=== PATIENT | male | born 1930 | race Caucasian/White ===

== ENCOUNTER 2017-01-03 12:44 | Observation (INO) | payer MEDICARE, OTHER ==
[~2017-01-03 12:44] MED LIST: Iopamidol 370 76% 100 ML VIAL ONE
[2017-01-03 13:39] LABS: Hematocrit 44.8 % (42.0-52.0); Mean Platelet Volume 9.9 fL (7.4-10.4); Red Blood Cell (RBC) Count 4.14 mill/uL (4.70-6.10); White Blood Cell (WBC) Count 8.4 thou/uL (4.8-10.8)
[2017-01-03 13:57] LABS: ALT (SGPT) 11 U/L (8-55); AST (SGOT) 28 U/L (5-34); Alkaline Phosphatase 106 U/L (40-150); Anion Gap 18 mmol/L (10-20); BUN (Urea Nitrogen) 25 mg/dL (8.4-25.7); Bilirubin, Total 0.8 mg/dL (0.2-1.2); CK (CPK) 58 U/L (30-200); Calc. Creatinine Clearance 0 mL/min (70-130); Carbon Dioxide 22 mmol/L (23-31); Chloride 99 mmol/L (98-107); Estimated GFR-MDRD 51; Globulin 4.7 g/dL (2.4-3.5); Protein, Total 8.9 g/dL (5.8-8.1)
[2017-01-03 13:58] LABS: Band 1 % (5-11); Macrocytosis SLIGHT = 6-15 cells (100X) (0-5/hpf); Neutrophil 56 % (42-75); Reactive Lymphocytes 8 % (0-10)
[2017-01-03 13:58] LABS: Bilirubin Negative (Negative); Blood, Urine Negative (Negative); Glucose, Urine (Dipstick) Negative (Negative); Ketone, Urine Negative (Negative); Nitrite Negative (Negative); Protein, Urine (Dipstick) 30 mg/dL (Neg-Trace)
[2017-01-03 13:59] LABS: Bacteria/HPF None Seen HPF (None Seen); Hyaline Casts/LPF 0-3 HYALINE CAST LPF (0-3 Hyaline); RBC/HPF 0-3 HPF (0-3); Squamous Epithelial None Seen HPF (0-3); WBC/HPF 0-3 HPF (0-3)
[2017-01-03 14:06] LABS: Troponin I Less than 0.010 ng/mL (< 0.028)
--- NOTE | 2017-01-03 14:41 | RAD ---
TWO VIEWS CHEST: HISTORY: Altered mental status. FINDINGS: PA and lateral views of the chest were obtained. Ectasia of the aorta is seen. Mild pulmonary vasc ular congestion is seen. Some calcifications seen in the left chest soft tissue lateral to the left ribs inferiorly. Anterior bridging osteophytes seen in the lower thoracic spine. IMPRESSION: 1. Calcification and ectasia of the aorta. 2. Left lateral chest wall calcifications. POS: [facility]
--- NOTE | 2017-01-03 15:35 | CT ---
CT BRAIN WITHOUT CONTRAST: HISTORY: Fall. Trauma. COMPARISON: CT brain from 02/17/2009. FINDINGS: There is marked progression of chronic microangiopathic changes. There is progressive moderate atro phy and moderate dilatation of extraaxial CSF spaces and ventricles. No acute hemorrhage. No midline shift or mass effect. There is a new right basal ganglia infarct at the posterior limb internal capsule. The calvarium is intact. The paranasal sinuses and mastoids are clear. IMPRESSION: 1. No acute intracranial hemorrhage. 2. Marked progression of microangiopathic changes with atrophy since the 2009 examination. Multi-i nfarct dementia is a possibility. If there is concern for an acute infarction, MRI is recommended. POS: [facility]
--- NOTE | 2017-01-03 15:45 | CT ---
CONTRAST ENHANCED CTA AORTA: 01/03/17 HISTORY: Abdominal pain. Contrast enhanced CTA of the thoracic and abdominal aorta is obtained after administration of IV con trast. 2D and 3D reconstruction images used to evaluate the chest and the abdomen. No evidence of aortic dissection or significant aneurysm seen. Ascending aortic diameter measures ap proximately 3.9 cm. Extensive coronary artery calcifications seen. ectasia of the aorta is noted. Th e right kidney is absent. The left kidney is unremarkable. There is moderate proximal left renal art haley stenosis, approximately 50-60%. Some atherosclerotic plaque seen in the origin of the celiac art haley with poststenotic dilatation. Mild but not significant evidence of superior mesenteric artery st enosis seen. 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 Multilevel lower thoracic and lumbar degenerative changes seen. There is fracture involving a bridge d osteophyte at the T10-11 level. Could this be the cause of the patient's pain? Inferolateral left chest wall soft tissue calcification is also seen. IMPRESSION: No evidence of abdominal aortic aneurysm or dissection. POS: [facility]
[2017-01-03] MEDS ORDERED: Morphine Sulfate 2 MG/ML SYRINGE SLOW IVP PRN (17:29)
[2017-01-03] MEDS ORDERED: HYDROcodone/Acetaminophen 5/325 mg Tablet PO PRN (17:29)
[2017-01-03] MEDS ORDERED: Acetaminophen 325 MG TAB PO PRN (17:29)
[2017-01-03] MEDS ORDERED: Ondansetron HCl/PF 4 MG/2 ML Vial IVP PRN (17:29)
[2017-01-03] MEDS ORDERED: HYDROcodone/Acetaminophen 10/325 mg Tablet PO PRN (17:29)
[2017-01-03 18:04] VITALS: BMI 20.2
[2017-01-03] MEDS: Sodium Chloride 0.9% 1,000 ML IV SCH (18:38)
--- NOTE | 2017-01-03 18:44 | HP ---
PRIMARY CARE PHYSICIAN: Janet Stark M.D. CHIEF COMPLAINT: Abdominal pain, recent fall. HISTORY OF PRESENT ILLNESS: Mr. Kang is a pleasant 86-year-old white male with history of a congen ital single kidney, hypertension, hyperlipidemia, prior stroke and a past aortic aneurysm status pos t stenting. The patient was in normal state of health until 12/19/2016. He was out in the garage and smoking hi s daily cigar and had the garage door partially closed. As he was walking outside, he struck his he ad on the garage door and fell, striking his head again on the concrete. He did not seek medical ca re at that point and did well for the next 4-5 days, but on 12/24/2016 began to get weaker and off b alance. He has been getting worse over the last 8 or 9 days. ER note mentions no bowel movement in 10 days; however, the patient said he had a bowel movement 1-2 days ago. He has had abdominal pain for the last 4 or 5 days. He describes is as the intermittent and crampy. It rates a 9-10/10 when it strikes. No known exacerbating or alleviating factors. He has had no blood in the stool, he is passing gas regularly, no nausea or vomiting, no difficulty breathing, cough or sputum production. No hematuria or dysuria. He came to the emergency department for evaluation. CT scan of the head was unremarkable, labs were largely unremarkable, vitals were largely normal except for increase in his pulse to 113 at one point. ER notes mentioned afib; however, he does appear to have P waves, it does appeared to be irregular. He has no other current complaints. PAST MEDICAL HISTORY: 1. Congenital single kidney. 2. Hypertension. 3. Hyperlipidemia. 4. History of cerebrovascular disease with a stroke in the past, in family, seizure or mini strokes . 5. Aortic dilation or aneurysm status post stenting about 10 years ago. PAST SURGICAL HISTORY: Include; 1. Right ankle repair about 10-12 years ago. 2. Appendectomy many, many years ago. 3. Aortic stent placement about 10 years ago. MEDICATIONS: List was given to the ER nurse, he is entered in the ER chart, but I am unable to look them up at this time. The list is no longer with the patient. ALLERGIES: NKDA. FAMILY HISTORY: Negative for clotting or bleeding disorders, no immune dysfunction. SOCIAL HISTORY: Significant for daily cigar for many years until 12/19/2016, he had been unable get to the garage since then. No alcohol use. He is . His accompanies him. REVIEW OF SYSTEMS: A 10-point review of systems was performed, negative for all other systems excep t as stated as per HPI. PHYSICAL EXAMINATION: VITAL SIGNS: Temperature 97.4, pulse 74, blood pressure 96/72, respiratory rate 18, satting 99% on room air. GENERAL: He is awake. He is alert. He is oriented x3. He is a well-developed, well-nourished, [place] male, who appears to be in zero distress. HEENT: Normocephalic, atraumatic. Pupils are equal, round and reactive to light bilaterally, mucou s membranes are moist without visible lesions or thrush. NECK: Supple, without lymphadenopathy, no JVD, no thyromegaly. He has normal carotid upstrokes and there were no bruits. LUNGS: Clear. No wheezes, rales or rhonchi. No prolonged expiratory phase, symmetric chest moveme nt and good air movement. CARDIOVASCULAR: Normal S1 and S2. He is irregularly irregular. There are no audible murmurs. ABDOMEN: Soft and is diffusely tender to mild palpation. There is no rebound or rigidity. There i s no guarding. There are hypoactive bowel sounds present in all 4 quadrants. EXTREMITIES: Show no cyanosis, no clubbing, no edema. SKIN: Warm, moist, and well perfused without rashes or lesions. NEUROLOGIC: Cranial nerves II-XII are grossly intact. He has 5/5 strength. Reflexes are intact. I did not get him up to walk him. MUSCULOSKELETAL: Normal to inspection. He has no inflamed joints and no palpable joint effusions. LABORATORY DATA: A comprehensive metabolic profile is normal. Creatinine is 1.32, which is slightl y above his baseline. CBC is normal with a white count of 8.4, platelets of 400,000 and hemoglobin of 14.7. Lipase was 24. Troponin I was negative. CK-MB was normal and urinalysis was clear. CT scan of the brain showed increased microangiopathic changes since 2008, but age appropriate. CT dissection protocol showed no abdominal aortic aneurysm, no evidence of dissection, ascending aortic aneurysm, maximum diameter is 3.9 cm. ASSESSMENT AND PLAN: 1. Abdominal pain: Etiology unclear. Labs are normal. We will get a CT scan of the abdomen with contrast to better evaluate. 2. In the meantime, we will start him on MiraLax daily, recheck labs in the morning. We will monit or his intake and output. 3. Ataxia: The patient has had decreased p.o. intake over the last several days. We will get orth ostatics once he gets to the floor. We will start him on IV fluids at 100 mL per hour. We will get carotid ultrasound and MRI/MRA of the brain and follow up on the results. 4. Chronic kidney disease, stage 3: Creatinine 1.32 in an 86-year-old corresponding to appropriate decrease in GFR. This appears to be around his baseline. 5. Hypertension, essential: We will follow up on his medications once I get a list and we will hol d those right now until we get his orthostatics back. 6. Hyperlipidemia: Hold his antihyperlipidemic agent. 7. Anorexia. I suspect he is maybe dehydrated. We will follow up on the results of his orthostati cs.
[2017-01-03] MEDS ORDERED: Polyethylene Glycol 3350 17 GM Packet PO SCH (20:15)
[2017-01-03] MEDS: Pravastatin Sodium 40 MG TAB PO SCH (21:11)
[2017-01-03] MEDS: Famotidine/PF 20 mg/2ml Vial SLOW IVP SCH (21:24)
--- NOTE | 2017-01-03 23:02 | CT ---
CT ABDOMEN AND PELVIS WITH CONTRAST 01/03/17 COMPARISON: CTA of the chest and abdomen from 01/03/17. HISTORY: Intractable abdominal pain. Prior appendectomy. TECHNIQUE: Multiple contiguous axial images were obtained in a CT of the abdomen and pelvis with contrast. PO c ontrast was administered. Coronal reformats were performed. FINDINGS: The right kidney is not seen and may be surgically or congenitally absent. Contrast is seen in the l eft renal collecting system from recent contrast examination. The urinary bladder shows trabeculatio n along the posterior wall and there is mild enlargement of the left distal ureter. No calyceal dila tation seen in the left kidney. The liver, gallbladder, adrenal glands, and spleen are unremarkable. There is a 1.7 cm cyst adjacent to the right pancreatic head. No pancreatic ductal dilatation is seen. There is scattered diverticula throughout the colon. No free air, free fluid or stranding changes ar e seen in the abdomen or pelvis. A large amount of stool is seen in the right colon. The small bowel is normal in caliber. Contrast passes to the level of the right colon. Atherosclerotic calcifications are seen in the aorta. No abdominal or pelvic lymphadenopathy are see n. Degenerative changes are seen in the spine. The abdominal wall soft tissues and visualized inferior thorax are unremarkable. IMPRESSION: 1. Absence of the right kidney. 2. Diverticulosis. 3. No evidence of acute intra-abdominal/pelvic abnormality. 4. Hypodense structure adjacent to the pancreatic head could represent a small pseudocyst. POS: [facility]
[2017-01-04 05:32] LABS: #Basophils 0.1 thou/uL (0.0-0.2); #Eosinphils 0.2 thou/uL (0.0-0.7); #Lymphocytes 1.1 thou/uL (1.20-3.40); #Monocytes 1.3 thou/uL (0.11-0.59); %Basophils 0.6 % (0.0-1.0); %Eosinophils 1.7 % (0.0-10.0); %Lymphocytes 11.1 % (21.0-51.0); %Monocytes 13.7 % (0.0-10.0); Hematocrit 40.5 % (42.0-52.0); Mean Platelet Volume 9.8 fL (7.4-10.4); Red Blood Cell (RBC) Count 3.77 mill/uL (4.70-6.10); White Blood Cell (WBC) Count 9.6 thou/uL (4.8-10.8)
[2017-01-04 05:45] LABS: Anion Gap 16 mmol/L (10-20); BUN (Urea Nitrogen) 21 mg/dL (8.4-25.7); Calc. Creatinine Clearance 43 mL/min (70-130); Calcium 9.2 mg/dL (7.8-10.44); Carbon Dioxide 19 mmol/L (23-31); Chloride 98 mmol/L (98-107); Estimated GFR-MDRD 61
--- NOTE | 2017-01-04 08:23 | ULT ---
BILATERAL CAROTID DUPLEX ULTRASOUND: HISTORY: Ataxia, CVA. TECHNIQUE: Rios scale ultrasound with color flow and spectral Doppler imaging of the extracranial carotid arter y systems is performed bilaterally. FINDINGS: There is plaque formation on either side. The peak systolic velocity in the right ICA measures 40 cm/s with an end-diastolic velocity of 12 cm /s and a systolic ratio of 1.04. The peak systolic velocity in the left ICA measures 42 cm/s with an end-diastolic velocity of 18 cm/ s and a systolic ratio of 0.97. Flow in both vertebral arteries remains antegrade. IMPRESSION: No evidence of hemodynamically significant stenosis. POS: [facility]
[2017-01-04] MEDS: Sodium Chloride 0.9% 1,000 ML IV SCH ×2 (08:40→13:47)
[2017-01-04] MEDS ORDERED: Polyethylene Glycol 3350 17 GM Packet PO SCH (09:00)
[2017-01-04] MEDS: Aspirin 325 MG TAB PO SCH (09:17)
[2017-01-04] MEDS: Famotidine/PF 20 mg/2ml Vial SLOW IVP SCH ×2 (09:17→20:20)
[2017-01-04] MEDS: Polyethylene Glycol 3350 17 GM Packet PO SCH (09:17)
--- NOTE | 2017-01-04 13:38 | PDOC.PN ---
- Subjective Encounter Start Date: 01/04/17 Encounter Start Time: 13:30 Expresses no complaint. Alert, confused. - Objective Resuscitation Status: Resuscitation Status FULL:Full Resuscitation Vital Signs & Weight: Vital Signs (12 hours) Temp Pulse Pulse Pulse Pulse Pulse Resp 01/04/17 12:00 97.4 F L 85 18 01/04/17 09:00 95 70 01/04/17 08:40 95 01/04/17 08:10 76 58 L 82 77 01/04/17 08:00 97.4 F L 102 H 20 BP BP BP BP BP BP 01/04/17 12:00 103/67 01/04/17 09:00 136/99 H 134/94 H 01/04/17 08:40 134/94 H 136/99 H 01/04/17 08:10 186/99 H 148/105 H 135/88 175/103 H 01/04/17 08:00 Weight Weight 145 lb 5 oz I&O: 01/03/17 01/04/17 01/05/17 06:59 06:59 06:59 Intake Total 1549 240 Output Total 1100 Balance 449 240 Result Diagrams: 01/04/17 04:53 01/04/17 04:53 Phys Exam - Physical Examination HEENT: sclera anicteric Neck: no JVD Respiratory: clear to auscultation bilateral Cardiovascular: RRR Gastrointestinal: soft, non-tender, no distention Musculoskeletal: no edema Neurological: moves all 4 limbs Psychiatric: normal affect Dx/Plan (1) Confusion Code(s): R41.0 - DISORIENTATION, UNSPECIFIED Status: Acute Plan: So far work up negative.. Acute Delirium. Has not received narcotics. Check b12, folate, TFT's, ESR. (2) HTN (hypertension) Code(s): I10 - ESSENTIAL (PRIMARY) HYPERTENSION Status: Acute Comment: BP satisfactory. (3) History of CVA (cerebrovascular accident) Code(s): Z86.73 - PRSNL HX OF TIA (TIA), AND CEREB INFRC W/O RESID DEFICITS Status: Acute (4) CKD (chronic kidney disease) Code(s): N18.9 - CHRONIC KIDNEY DISEASE, UNSPECIFIED Status: Acute Comment: resolving.. - Plan -: F/u MRI, lab results. * .
--- NOTE | 2017-01-04 14:27 | MRI ---
EXAM: BRAIN MRI WITHOUT CONTRAST: HISTORY: Confusion. Fall. Trauma. Ataxia. Evaluate for CVA. COMPARISON: None. TECHNIQUE: There is limited evaluation due to motion degradation on multiple sequences. Calvarium has a normal T1 marrow signal intensity. Midline brain parenchymal structures are unremar kable. There is age-appropriate atrophy. Axial T2 weighted images are suboptimal due to motion degradation. Grossly, central arterial flow v oids appear to be maintained. There is no restricted diffusion. No obvious parenchymal masses or obvious midline shift. Cortical whitten-white matter differentiation cannot be assessed. IMPRESSION: 1. Limited evaluation due to motion degradation. 2. No restricted diffusion. No acute infarct. POS: [facility]
--- NOTE | 2017-01-04 14:33 | MRI ---
EXAM: MR ANGIOGRAM OF THE [place]: HISTORY: Ataxia. Evaluate for CVA. Altered mental status. COMPARISON: None. TECHNIQUE: Axial 3D [id number] imaging of the [place] is performed. Maximum intensity projection images are submitted for interpretation. FINDINGS: Limited evaluation due to motion degradation. There is grossly symmetric flow-related signal in bot h distal cervical and intracranial internal carotid arteries. ANTERIOR CIRCULATION: There is grossly symmetric flow-related signal in the A1 and M1 segments. Grossly symmetric flow-re lated signal in the proximal MCA branches and proximal A2 segments. POSTERIOR CIRCULATION: Codominant vertebral arteries. Suboptimal evaluation of both PICA artery origins. Incomplete evalu ation of the proximal basilar artery. Mid to distal basilar artery has appropriate flow-related sig nal. Left and right P1 segments have symmetric flow-related signal. IMPRESSION: Limited evaluation due to motion degradation. Grossly, no abnormality. POS: [facility]
--- NOTE | 2017-01-04 18:08 | PDOC.EVN ---
Event Note - Event Note Event Note: Nuerology consulted in view of confusion, new onset...
[2017-01-04] MEDS: Pravastatin Sodium 40 MG TAB PO SCH (20:20)
[2017-01-05 08:03] VITALS: TEMP 97.3
[2017-01-05 08:47] VITALS: BP 145/60
[2017-01-05] MEDS: Aspirin 325 MG TAB PO SCH (09:06)
[2017-01-05] MEDS: Polyethylene Glycol 3350 17 GM Packet PO SCH (09:06)
[2017-01-05] MEDS: Famotidine/PF 20 mg/2ml Vial SLOW IVP SCH (09:07)
--- NOTE | 2017-01-05 12:19 | DIS ---
DATE OF ADMISSION: 01/03/2017 DATE OF DISCHARGE: 01/04/2017 TRANSFER OF CARE PRIMARY CARE DOCTOR: Janet Stark M.D. DISCHARGE DISPOSITION: Home. FINAL DIAGNOSES: Early dementia with confusion, chronic kidney disease stage 3, hypertension, and d yslipidemia. DISCHARGE MEDICATIONS: New, Aricept 5 mg a day, aspirin 325 mg a day, clonidine 0.2 mg a day, losar nieves HCT 50/12.5 one half tablet a day, pravastatin 40 mg a day, lactulose 10 mg p.r.n., polyethylene glycol 17 mg p.o. daily. ALLERGIES: No known drug allergies. PENDING AT THE TIME OF DISCHARGE: Nothing. CODE STATUS: FULL. HOSPITAL COURSE: The patient admitted to [facility] with some abdominal pain a nd recent fall. He has had some progressive confusion in the hospital which in discussion with the turns out to be worse than before, but not new. Brain MRI was unrevealing for acute illness as well as CT scan of the brain. Abdominal pelvis CT revealed absence of right kidney and possible sm all pancreatic pseudocyst. The patient was treated with laxatives, had some enema. Abdominal pain has resolved. PERTINENT LABORATORY DATA: Creatinine 1.32, BUN 25. CBC: White count 8.4, hemoglobin 14.7, and pl atelet count 400,000. In summary, the patient exhibits signs and symptoms of early dementia. I have discussed options for continuing care with the . We have discussed the option of getting Aricept to his regimen to s ee if this is beneficial and a prescription has been given for that. No consultations were obtained . No procedures were obtained. The patient is being discharged to home with his . We discusse d such efforts as [facility] instead to assist her, the possible necessity of placement if he continues to get worse. She has been advised to have him seen by Dr. Stark this week for continui ng evaluation of possible dementia, etc.
--- NOTE | 2017-01-11 14:51 | EKG ---
Test Reason : WEAKNESS Blood Pressure : / mmHG Vent. Rate : 096 BPM Atrial Rate : 092 BPM P-R Int : 096 ms QRS Dur : 120 ms QT Int : 396 ms P-R-T Axes : 000 085 009 degrees QTc Int : 500 ms Poor data quality, interpretation may be adversely affected Sinus rhythm with short SD with Premature supraventricular complexes Right bundle branch block Abnormal ECG Confirmed by TAMIKO KEBEDE D.O. ([id number]), assignment editor ASHLI DAWKINS ([id number]) on 01/11/2017 2:51:05 PM Referred By: PEDRO Confirmed By:TAMIKO KEBEDE D.O.
== END 2017-01-05 10:29 | disposition home or self-care (01) ==
LOC: ERS 12:44 → 2SE 15:45
PROVIDERS: ADMIT Family Medicine; ATTEND Family Medicine
DX: R10.9 Unspecified abdominal pain (principal); F03.90 Unspecified dementia, unspecified severity, without behavioral disturbance, psychotic disturbance, mood disturbance, and anxiety; I12.9 Hypertensive chronic kidney disease with stage 1 through stage 4 chronic kidney disease, or unspecified chronic kidney disease; N18.3 Chronic kidney disease, stage 3 (moderate); E78.5 Hyperlipidemia, unspecified; F17.210 Nicotine dependence, cigarettes, uncomplicated; Q60.0 Renal agenesis, unilateral; Z79.82 Long term (current) use of aspirin; Z79.899 Other long term (current) drug therapy; Z90.49 Acquired absence of other specified parts of digestive tract; Z95.5 Presence of coronary angioplasty implant and graft; Z98.890 Other specified postprocedural states; Z86.73 Personal history of transient ischemic attack (TIA), and cerebral infarction without residual deficits
CPT/HCPCS: 70450; 70544; 70551; 71020; 71275; 74177; 80048; 80053; 82550; 82553; 82607; 82746; 83690; 83880; 84439; 84443; 84484; 85025 ×2; 85652; 93005; 93880; 96361 ×2; 96374; 96376 ×2; 97139 ×2; 97530; 99285; G0378; G8978; G8979; G8987; G8988; 36415; 81003; 81015; A4216; G8996-GN-CM; G8997-GN-CJ; S0028

== ENCOUNTER 2017-07-22 20:39 | Emergency (ER) | payer MEDICARE, OTHER ==
[2017-07-22] MEDS ORDERED: Adacel (T-DAP) 0.5 ML VIAL ONE (21:34)
[2017-07-22] MEDS ORDERED: Bacitracin Zinc 1 Packet ONE ×2 (22:00→22:57)
[2017-07-22] MEDS ORDERED: Lidocaine 1% w/Epinephrine 1:100K 20 ML VIAL ONE (22:18)
--- NOTE | 2017-07-22 22:34 | CT ---
NONCONTRAST HEAD CT: HISTORY: The patient fell at home. Post traumatic pain. COMPARISON: 01/03/2017 TECHNIQUE: A noncontrast head CT is performed from the skull base to the skull vertex. FINDINGS: No parenchymal hemorrhage. No extraaxial hematoma. No midline shift. The basilar cisterns are ayala nt. Age appropriate atrophy. Cortical whitten white matter differentiation is preserved. The ventricles and sulci are patent and symmetric. Chronic small vessel ischemic changes of the white matter are identified. The calvarium is intact. Cavernous carotid atherosclerosis is noted. Chronic changes of the right maxillary sinus. Adequate aeration of the mastoid air cells. IMPRESSION: 1. No intracranial posttraumatic sequelae. 2. Age appropriate atrophy. 3. Chronic small vessel ischemic change of the white matter. POS: [facility]
--- NOTE | 2017-07-22 22:37 | CT ---
CT CERVICAL SPINE WITHOUT CONTRAST: HISTORY: Fall. Pain. COMPARISON: None. TECHNIQUE: CT cervical spine is performed without contrast. Reformatted images are submitted for interpretation . FINDINGS: The visualized soft tissue neck structures are unremarkable. There is atherosclerosis of both caroti d arteries. The visualized lung apices are unremarkable. There are varying degrees of central canal stenosis and foraminal narrowing, on the basis of degenera tive change. Evaluation is limited by technique. There is no craniocervical disassociation. The occipital condyles appear to be intact. There is franco ropriate alignment of the lateral masses of C1 and C2, as well as the intraarticular facets. There a re chronic degenerative changes involving the atlantoaxial articulation. There is extensive osteophyte formation throughout the cervical spine. There is diffuse bone deminer alization. No evidence of malalignment. Cervical spine vertebral body height is maintained. There is no fracture. IMPRESSION: 1. No fracture. 2. Chronic changes, as above. POS: [facility]
== END 2017-07-23 01:20 | disposition home or self-care (01) ==
LOC: ERS 20:39
DX: S61.412A Laceration without foreign body of left hand, initial encounter (principal); F03.90 Unspecified dementia, unspecified severity, without behavioral disturbance, psychotic disturbance, mood disturbance, and anxiety; E78.5 Hyperlipidemia, unspecified; I10 Essential (primary) hypertension; F17.290 Nicotine dependence, other tobacco product, uncomplicated; Z71.6 Tobacco abuse counseling; Z86.73 Personal history of transient ischemic attack (TIA), and cerebral infarction without residual deficits; Z79.82 Long term (current) use of aspirin; Z79.899 Other long term (current) drug therapy; W19.XXXA Unspecified fall, initial encounter; Y92.009 Unspecified place in unspecified non-institutional (private) residence as the place of occurrence of the external cause
CPT/HCPCS: 70450; 72125; 90471; 90715; 99406; J2001

== ENCOUNTER 2019-01-14 09:27 | Outpatient (CLI) | payer MEDICARE, OTHER ==
--- NOTE | 2019-01-14 09:53 | RAD ---
EXAM: Chest 2 views: HISTORY: Cough COMPARISON: 01/03/2017 FINDINGS: Heart size:Within normal limits. Lungs:Approximately 3 cm diameter nodular opacity seen overlying the mid thoracic spine on the latera l view, this in part probably represents underlying disc osteophytosis although an associated lung mass cannot be excluded. Follow-up CT scan is recommended. Right hemidiaphragm elevation posteriorly. Atherosclerotic changes of the aorta. No confluent pneumonia, overt edema, pleural effusion, pneumothorax, or other significant acute proce ss. IMPRESSION: Approximately 3 cm diameter nodular opacity seen on the lateral view overlying the mid thoracic spine . Recommend CT scan for further assessment. Atherosclerosis of the aorta. No acute intrathoracic disease. CODE T
== END 2019-01-14 09:28 | disposition home or self-care (01) ==
LOC: BICRAD 09:27
PROVIDERS: ATTEND Internal Medicine
DX: R05 Cough (principal); R91.8 Other nonspecific abnormal finding of lung field; I70.0 Atherosclerosis of aorta
CPT/HCPCS: 71046

== ENCOUNTER 2019-03-06 15:47 | Inpatient (IN) | payer MEDICARE, OTHER ==
--- NOTE | 2019-03-06 16:39 | CT ---
Exam: Head CT without contrast HISTORY: Altered mental status. Dementia COMPARISON: 07/22/2017 FINDINGS: Hemorrhage: No intraparenchymal hemorrhage or extra-axial hematoma. Brain parenchyma: Cortical whitten-white matter differentiation is preserved. No mass effect or midline shift. Basilar cisterns are patent.White matter hypodensities due to chronic small vessel ischemic change. Ventricular system: Ventricles and sulci are patent and symmetric. Calvarium: Intact. Sinuses and mastoid air cells: Adequate aeration of the paranasal sinuses. Sclerosis of the right max illary sinus likely due to chronic disease. Currently, no significant right maxillary sinus opacification. IMPRESSION: No acute intracranial process.
[2019-03-06 17:21] LABS: ALT (SGPT) 9 U/L (8-55); AST (SGOT) 21 U/L (5-34); Albumin 3.7 g/dL (3.4-4.8); Alkaline Phosphatase 99 U/L (40-110); Anion Gap 12 mmol/L (10-20); BUN (Urea Nitrogen) 16 mg/dL (8.4-25.7); Bilirubin, Total 0.7 mg/dL (0.2-1.2); CK (CPK) 112 U/L (30-200); Calc. Creatinine Clearance 0 mL/min (70-130); Calcium 8.5 mg/dL (7.8-10.44); Carbon Dioxide 23 mmol/L (23-31); Chloride 99 mmol/L (98-107); Estimated GFR-MDRD 60; Globulin 2.9 g/dL (2.4-3.5); Glucose 108 mg/dL (83-110); Potassium 4.2 mmol/L (3.5-5.1); Protein, Total 6.6 g/dL (5.8-8.1); Sodium 130 mmol/L (136-145)
[2019-03-06 17:59] LABS: Hemoglobin 12.5 g/dL (14.0-18.0); Mean Corpuscular HGB CONC 32.3 g/dL (32.0-36.0); Mean Corpuscular Hemoglobin 31.2 pg (27.0-31.0); Mean Corpuscular Volume 96.4 fL (78.0-98.0); Mean Platelet Volume 9.3 fL (7.4-10.4); Platelet Count 380 thou/uL (130-400); RBC Distribution Width 12.2 % (11.5-14.5); Red Blood Cell (RBC) Count 4.03 mill/uL (4.70-6.10); White Blood Cell (WBC) Count 28.6 thou/uL (4.8-10.8)
[2019-03-06 18:18] LABS: Band 11 % (5-11); Eosinophils 1 % (0-10); Lymphocytes 2 % (21-51); MDiff Complete? YES; Monocytes 3 % (0-10); Neutrophil 83 % (42-75); Platelet Morphology Comment Appears Adequate; Polychromasia SLIGHT = 2-3 cells (100X) (0-2/hpf); Schistocytes SLIGHT = 2-5 cells (100X) (0-1/hpf)
[2019-03-06 18:54] LABS: Bilirubin Negative (Negative); Blood, Urine Negative (Negative); Clarity Clear (Clear); Glucose, Urine (Dipstick) Normal (Negative); Leukocyte Negative Leu/uL (Negative); Nitrite Negative (Negative); Protein, Urine (Dipstick) 20 mg/dL (Neg-Trace); Urobilinogen Normal mg/dL (Less than 2)
--- NOTE | 2019-03-06 19:26 | RAD ---
XR Chest 1 View Portable History: Altered mental status Comparison: Radiograph January 14, 2019 Findings: Faint bibasilar airspace opacities. Mild tortuosity of the aorta. No pneumothorax. No effus ion. No acute osseous abnormality. Impression: Faint bibasilar opacities may reflect aspiration or infection.
[2019-03-06] MEDS ORDERED: Piperacillin/Tazobactam 4.5 GM VIAL ONE (21:19)
[2019-03-07] MEDS ORDERED: Acetaminophen 325 MG TAB PO PRN ×2 (00:13→00:53)
[2019-03-07] MEDS ORDERED: Sodium Chloride 0.9% 500 ML IV SCH ×2 (00:15→09:00)
--- NOTE | 2019-03-07 00:37 | HP ---
PRESENTING COMPLAINT: Fall, weakness. HISTORY OF PRESENT ILLNESS: Mr. Jorge Luis Valerio is an 88-year-old male with history of dementia, recurrent falls, status post multiple physical therapy, currently on hospice with home PT, admitted today after sustaining a fall while going to the bathroom. Family reports the patient has fallen backward and hit his head. The patient denies falling. He states he is not sure why he came to the hospital. He denies any chest pain. He denies any dizziness or vertigo feeling. Family reports the patient has been having decreasing p.o. intake. He has also been having recent diarrhea. On arrival in the ED, head CT did not show any acute intracranial bleed. The patient was noted with mild leukocytosis with WBC of 28,000, and been admitted for presumed pneumonia. The patient denies any cough or shortness of breath or sputum. PAST MEDICAL HISTORY: Significant for hypertension, hyperlipidemia, history of CVA in the past, history of aortic dilatation requiring stenting, dementia, and currently on hospice. The patient has history of chronic atrial fibrillation, not on any anticoagulation currently. PAST SURGICAL HISTORY: Includes aortic stent placement, ankle repair, and appendectomy. ALLERGIES: NO KNOWN DRUG ALLERGY. HOME MEDICATIONS: Include; 1. Clonidine 0.2 daily. 2. Pravachol 40 daily. 3. Losartan/hydrochlorothiazide 50/12.5, 0.5 daily. 4. Aricept 5 mg at bedtime. 5. Aspirin 325 daily. 6. Lactulose p.r.n. as well as MiraLAX. FAMILY HISTORY: Noncontributory in this elderly male. REVIEW OF SYSTEMS: Unable to obtain given patient's baseline dementia. PHYSICAL EXAMINATION: CURRENT VITALS: Blood pressure of 125/69, respiratory rate of 20, pulse of 110, temp 99.3, O2 saturation of 92% on room air. GENERAL: Average-built elderly male, lying in bed. HEAD: Atraumatic, normocephalic. No area of abrasion over the scalp. No tenderness elicited. NECK: No JVD. No carotid bruit. RESPIRATORY: Good air entry. No area of crepitation or elicited egophony. CARDIOVASCULAR: S1, S2. Irregular and tachycardic. GI: Abdomen is full, soft. Bowel sounds positive. No reproducible tenderness. EXTREMITIES: No calf tenderness. No pedal edema. NEURO: Patient is alert to person and to place, but not to time. Moving extremities equally. No neurological focal motor deficit. LABORATORY DATA: WBC 28.6, neutrophils 83%, 11% bands, hemoglobin 12.5, platelet 380. Sodium 130, potassium 4.2, lactic acid 2.0, BUN 16, creatinine 1.1. BNP of 110. Albumin 3.7. AST and alkaline phosphatase normal. Urinalysis was negative. Stool workup, C difficile Campylobacter and shiga toxin test pending. Head CT shows no acute intracranial process and chest x-ray shows faint bibasilar opacities, which may reflect aspiration. IMPRESSION: 1. Presumed right base pneumonia. 2. Recurrent falls. 3. History of dementia, progressive. 4. Hyponatremia. 5. Acute gastroenteritis, unclear etiology. PLAN: We will admit patient to inpatient status. We will manage the patient for the following; 1. Recurrent falls, may be due to recent diarrhea as well as progressive dementia-induced weakness. We will consult PT and OT. We will address presumed pneumonia and correct. 2. Leukocytosis/right base pneumonia; we will obtain blood culture x2. We will start patient on empiric antibiotics with Rocephin 2 g daily. We will obtain sputum for culture and sensitivity if feasible. We will monitor O2 saturation closely and start oxygen if needed. 3. AFib; we will monitor. We will start the patient on low-dose metoprolol if persistent elevated heart rate. May need amiodarone or digoxin. 4. Dementia with decreased appetite. We will start Remeron trial. 5. DVT prophylaxis, subcutaneous Lovenox. 6. Advance directives, patient is DNR/DNI. Total time spent evaluation of patient and discussion with family, greater than 60 minutes. Job ID: [id number]
[2019-03-07 00:42] VITALS: BMI 24.8
[2019-03-07] MEDS ORDERED: Guaifenesin DM 100-10/5 ML UDCUP PO PRN (00:53)
[2019-03-07] MEDS ORDERED: Ondansetron PF 4 MG/2 ML Vial IVP PRN ×2 (00:53→08:47)
[2019-03-07] MEDS ORDERED: Lorazepam 2 MG/ML VIAL SLOW IVP PRN (00:53)
[2019-03-07] MEDS ORDERED: Morphine 2 MG/ML SYRINGE SLOW IVP PRN (00:53)
[2019-03-07] MEDS ORDERED: hydrALAZINE 20 MG/ML VIAL SLOW IVP PRN ×2 (00:53→08:47)
[2019-03-07] MEDS ORDERED: Nitroglycerin 0.4 MG TAB (25 Tab Bottle) SL PRN (00:53)
[2019-03-07] MEDS ORDERED: Mirtazapine 15 MG Soltab PO SCH ×2 (01:00→21:00)
[2019-03-07] MEDS ORDERED: cefTRIAXone\\ROCEPHIN 2 GM in Sodium Chloride 0.9% 100 ML IVPB SCH (02:00)
[2019-03-07 04:34] LABS: Anion Gap 18 mmol/L (10-20); BUN (Urea Nitrogen) 16 mg/dL (8.4-25.7); Calc. Creatinine Clearance 53 mL/min (70-130); Carbon Dioxide 18 mmol/L (23-31); Chloride 101 mmol/L (98-107); Estimated GFR-MDRD 64; Glucose 97 mg/dL (83-110); Potassium 3.8 mmol/L (3.5-5.1); Sodium 133 mmol/L (136-145)
[2019-03-07 05:16] LABS: #Eosinphils 0.2 thou/uL (0.0-0.7); #Lymphocytes 1.3 thou/uL (1.20-3.40); #Monocytes 1.3 thou/uL (0.11-0.59); #Neutrophils 9.7 thou/uL (1.40-6.50); %Basophils 0.2 % (0.0-1.0); %Eosinophils 1.4 % (0.0-10.0); %Lymphocytes 10.4 % (21.0-51.0); %Monocytes 10.1 % (0.0-10.0); %Neutrophils 77.9 % (42.0-75.0); Hemoglobin 12.7 g/dL (14.0-18.0); Mean Corpuscular HGB CONC 32.4 g/dL (32.0-36.0); Mean Corpuscular Hemoglobin 30.9 pg (27.0-31.0); Mean Corpuscular Volume 95.2 fL (78.0-98.0); Mean Platelet Volume 9.9 fL (7.4-10.4); Platelet Count 315 thou/uL (130-400); RBC Distribution Width 12.2 % (11.5-14.5); Red Blood Cell (RBC) Count 4.12 mill/uL (4.70-6.10); White Blood Cell (WBC) Count 12.4 thou/uL (4.8-10.8)
[2019-03-07] MEDS ORDERED: Piperacillin/Tazobactam 4.5 GM in Sodium Chloride 0.9% 100 ML IVPB SCH (06:00)
--- NOTE | 2019-03-07 07:50 | PDOC.HHP ---
Hospitalist HPI - History of Present Illness Fall, syncope History of Present Illness: Patient is an 88 year old male with PMH atrial fibrillation, dementia, history of TIA who presented to ED from home for fall last night. History obtained from ([facility], ) and ED chart review as patient is unreliable historian. 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 and patient do not think there was significant trauma during fall. reports pale and diaphoretic after episode. Patient recovered consciousness in a few seconds but was altered afterwards somewhat and remains below baseline mental status. No bowel or bladder incontinence during episode. No history of seizure. Patient has had a TIA 1.5 years ago with no residual. 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 When I talk with patient he is pleasant and conversive, but denies any memory of fall and reports he feels great. In ED, imaging performed which ED physician interpreted as early pneumonia. VS stable, no fevers or hypoxia. CT head without acute findings. Telemetry and EKG reported w/ atrial fibrillation rate controlled 81 bpm. Sound hospitalist called to admit patient, currently vitals stable, not hypoxic, denies all symptoms (see ROS), may be minimizing with goal of going home sooner. Sees Dr Janet Partida as outpatient, patient was on hospice service currently but is probably now revoked on admission to hospital today, was on hospice due to dementia. Hospitalist ROS - Review of Systems Constitutional: denies: fever, chills Eyes: denies: pain, vision change ENT: denies: nose discharge, throat swelling Respiratory: denies: cough, shortness of breath Cardiovascular: denies: chest pain, palpitations Gastrointestinal: denies: nausea, vomiting, abdominal pain Genitourinary: denies: dysuria, frequency Musculoskeletal: denies: neck pain, shoulder pain Skin: denies: rash, lesions Neurological: denies: weakness, numbness Other: baseline dementia - Medication Medications: Active Medications Generic Name Dose Route Start Last Admin Trade Name Freq PRN Reason Stop Dose Admin Sodium Chloride 500 mls @ 25 mls/hr 03/07/19 00:15 03/07/19 01:50 Normal Saline 0.9% IV 03/07/19 08:45 500 mls .Q20H WES Administration Piperacillin Sod/Tazobactam 100 mls @ 200 mls/hr 03/07/19 06:00 03/07/19 06: 34 Sod 4.5 gm/ Sodium Chloride IVPB 03/07/19 08:45 100 mls Q6HR WES Administration Ceftriaxone Sodium 2 gm/ 100 mls @ 200 mls/hr 03/07/19 02:00 03/07/19 01:58 Sodium Chloride IVPB 100 mls 0200 WES Administration Hospitalist History - Past Medical History Other Medical History: CVA born with one kidney HTN dementia - Past Surgical History Other Surgical History: ankle surgery appendectomy spinal surgery - Family History Other Family History: reviewed and noncontributory - Social History Other Social History: denies alcohol, denies drug use, smokes cigars - Exam General Appearance: NAD, awake alert Eye: PERRL, anicteric sclera ENT: normocephalic atraumatic, moist mucosa Neck: supple, no JVD Heart: no murmur, no gallops, no rubs Heart - other findings: irregularly irregular Respiratory: CTAB, no wheezes, no rales, no ronchi Gastrointestinal: soft, non-tender, non-distended, normal bowel sounds Extremities: no cyanosis, no clubbing, no edema Skin: no lesions, no rashes Neurological: cranial nerve grossly intact, normal sensation to touch, no weakness, no focal deficits Musculoskeletal: normal tone, normal strength Psychiatric: normal affect Psychiatric - other findings: dementia, pleasant Hospitalist Results - Labs Result Diagrams: 03/07/19 03:38 03/07/19 03:38 Lab results: WBC 12.4 thou/uL (4.8-10.8) H 03/07/19 03:38 Hgb 12.7 g/dL (14.0-18.0) L 03/07/19 03:38 Hct 39.2 % (42.0-52.0) L 03/07/19 03:38 MCV 95.2 fL (78.0-98.0) 03/07/19 03:38 Plt Count 315 thou/uL (130-400) 03/07/19 03:38 Neutrophils % 77.9 % (42.0-75.0) H 03/07/19 03:38 Band Neuts % (Manual) 11 % (5-11) 03/06/19 17:46 Sodium 133 mmol/L (136-145) L 03/07/19 03:38 Potassium 3.8 mmol/L (3.5-5.1) 03/07/19 03:38 Chloride 101 mmol/L (98-107) 03/07/19 03:38 Carbon Dioxide 18 mmol/L (23-31) L 03/07/19 03:38 BUN 16 mg/dL (8.4-25.7) 03/07/19 03:38 Creatinine 1.09 mg/dL (0.7-1.3) 03/07/19 03:38 Glucose 97 mg/dL (83-110) 03/07/19 03:38 Lactic Acid 2.0 mmol/L (0.5-2.2) 03/06/19 17:46 Calcium 9.0 mg/dL (7.8-10.44) 03/07/19 03:38 Total Bilirubin 0.7 mg/dL (0.2-1.2) 03/06/19 16:46 AST 21 U/L (5-34) 03/06/19 16:46 ALT 9 U/L (8-55) 03/06/19 16:46 Alkaline Phosphatase 99 U/L (40-110) 03/06/19 16:46 Creatine Kinase 112 U/L (30-200) 03/06/19 16:46 Troponin I Less than 0.010 ng/mL (< 0.028) 03/06/19 16:46 B-Natriuretic Peptide 110.8 pg/mL (0-100) H 03/06/19 16:46 Serum Total Protein 6.6 g/dL (5.8-8.1) 03/06/19 16:46 Albumin 3.7 g/dL (3.4-4.8) 03/06/19 16:46 Urine Ketones Negative mg/dL (Negative) 03/06/19 18:35 Urine Blood Negative (Negative) 03/06/19 18:35 Urine Nitrite Negative (Negative) 03/06/19 18:35 Ur Leukocyte Esterase Negative Elan/uL (Negative) 03/06/19 18:35 Hospitalist H&P A/P - Plan Plan: Patient is an 88 year old male with PMH atrial fibrillation, dementia, history of TIA who presented to ED from home for fall last night, being treated for: # syncope - ddx vasovagal vs cardiac vs medication induced, no BBI or post ictal confusion, occured on ambulating during night which suggests vasovagal as cause, patient not reliable historian - admit to telemetry (in IMCU as overflow I believe, ok to send to telemetry when bed available) - monitor on telemetry, trend troponins, echo ordered - orthostatic vitals ordered, 500cc bolus - treat pneumonia and hyponatremia as below - hold metoprolol, change clonidine to PRN and monitor BP and HR for lows that could have caused fall # hyponatremia - went from 133 to 130 here, trend BMP daily, give IVF bolus, treat pneumonia, rule out heart failure # leukocytosis - likely leukemoid reaction to fall and pneumonia, trend CBC # atrial fibrillation - rate controlled, not on anticoagulation at home as far as I am aware, hold metoprolol and monitor heart rate - monitor on telemetry, follow rate, restart beta ngozi if needed # pneumonia - community aquired, order azithromycin and ceftraixone, follow up urinary legionella and pneumococcal abs and flu screen # history of dementia - continue home dementia medications, fall precautions, patient was on hospice for this before admission Disposition - monitor on telemetry and follow up ordered studies above, PT/OT to screen for rehab needs, if cleared for d/c medically will want to discuss with case management before discharge as will likely want to restart hospice. adjust BP/heart meds on discharge if lows observed.
[2019-03-07] MEDS ORDERED: Loperamide HCl 2 MG CAP PO PRN (08:34)
[2019-03-07] MEDS ORDERED: Bisacodyl 10 MG SUPP PR PRN (08:34)
[2019-03-07] MEDS ORDERED: Bisacodyl 5 MG TAB PO PRN (08:34)
[2019-03-07] MEDS ORDERED: Senokot S 8.6-50 MG TAB PO PRN (08:34)
[2019-03-07] MEDS ORDERED: cloNIDine 0.1 MG TAB PO PRN (08:47)
[2019-03-07] MEDS ORDERED: Promethazine HCl 12.5 MG in Sodium Chloride 0.9% 50 ML IVPB PRN (08:47)
[2019-03-07] MEDS ORDERED: Famotidine 20 MG TAB PO SCH (09:00)
[2019-03-07] MEDS ORDERED: Aspirin 325 MG TAB PO SCH (09:00)
[2019-03-07] MEDS ORDERED: Enoxaparin Sodium 40 MG/0.4 ML SYRINGE SC SCH (09:00)
[2019-03-07] MEDS ORDERED: cloNIDine 0.2 MG TAB PO SCH (09:00)
--- NOTE | 2019-03-07 09:54 | PDOC.EVN ---
Event Note - Event Note Event Note: Advanced care planning note Discussed with and son at bedside who are next of kin, son Julián is MPOA, patient still symptom free and wants to go home, no hypoxia, family and patient wish to resume hospice on discharge, code status discussed and they wish to continue DNR/DNI, which is in chart already. Discussed plan of care, they do not want another echo as they have had many with Dr Dixon. Will adjust plan as follows: - consult case management for resume hospice on discharge - perform orthostatic vitals - ambulate with PT or tech on O2 monitor and telemetry to ensure tolerating exercise with no desaturation or arrhtyhmia - if all of the above can be completed, can likely discharge to recover at home , has 24 7 hospice nursing to help with home needs 22 minutes goal of care discussion. no palliative consult needed. son is IRENE. case management consulted.
[2019-03-07] MEDS ORDERED: Azithromycin 250 MG TAB PO SCH (10:00)
[2019-03-07 12:27] VITALS: BP 107/81; TEMP 98.1
[2019-03-07] MEDS ORDERED: Donepezil HCl 10 MG TAB PO SCH (21:00)
[2019-03-08] MEDS ORDERED: cefTRIAXone\\ROCEPHIN 1 GM in Sodium Chloride 0.9% 100 ML IVPB SCH (02:00)
--- NOTE | 2019-04-06 19:00 | PQF ---
Teodoro Kang MICHAEL, MD [id number] CLINICAL DOCUMENTATION CLARIFICATION FORM: POST DISCHARGE Addendum to original discharge summary date: ____ Late entry note date: __ DATE: 04/06/19 ATTN: Eduard Eldridge Please exercise your independent, professional judgment in responding to the clarification form. Clinical indicators are provided on the bottom of this form for your review Please check appropriate box(es): [ ] Sepsis due to Pneumonia [ ] SIRS due to non-infectious process (please specify etiology) [ ] with organ dysfunction [ ] without organ dysfunction [ ] Severe sepsis with acute organ dysfunction of: (Examples: respiratory failure, encephalopathy, acute kidney failure, other) [ ] Septic Shock [ ] Localized infection without sepsis [ ] Other diagnosis [ ] Unable to determine In addition, please specify: Present on Admission (POA): [ ] Yes [ ] No [ ] Unable to determine For continuity of documentation, please document condition throughout progress notes and discharge summary. Thank You. CLINICAL INDICATORS - SIGNS / SYMPTOMS / LABS Laboratory Hematology 04/05: WBC 28.6 Laboratory Hematology 04/06: WBC 12.4 H&P p1 04/05 Dr Moreno The patient was noted with mild leukocytosis with WBC of 28,000 and has been admitted with presumed Pneumonia H&P p2 04/05 Dr Moreno Vital sign BP 125/69, Resp rate 20, Pulse 110, Temp99.3, O2 saturation 92% RISK FACTORS H&P p1 04/05 88 year-old male H&P p1 04/05 Dementia H&P p2 04/05 Pneumonia H&P p2 04/05 Hyponatremia TREATMENTS: JUN 24 IV Zosyn JUN 24 IV Vancomycin JUN 24 IV Ceftriaxone (This form is maintained as a part of the permanent medical record) 2014 [employer]. All Rights Reserved [email or web address] [not provided] MTDD
== END 2019-03-07 14:03 | disposition hospice, home (50) | DRG 194 ==
LOC: ERS 15:47 → IMCU/EMU 21:06 → OBSVTOIN 21:06 → INTOOBSV 21:06
PROVIDERS: ADMIT Internal Medicine; ATTEND Internal Medicine
DX: J18.9 Pneumonia, unspecified organism (principal); E87.1 Hypo-osmolality and hyponatremia; Q60.0 Renal agenesis, unilateral; Z66 Do not resuscitate; Z51.5 Encounter for palliative care; E78.5 Hyperlipidemia, unspecified; F03.90 Unspecified dementia, unspecified severity, without behavioral disturbance, psychotic disturbance, mood disturbance, and anxiety; R29.6 Repeated falls; I48.91 Unspecified atrial fibrillation; I10 Essential (primary) hypertension; Z86.73 Personal history of transient ischemic attack (TIA), and cerebral infarction without residual deficits; Z95.818 Presence of other cardiac implants and grafts; Z79.899 Other long term (current) drug therapy; Z79.82 Long term (current) use of aspirin; Z90.49 Acquired absence of other specified parts of digestive tract
CPT/HCPCS: 36415; 51701; 70450; 71045; 80048; 80053; 81003; 82550; 83605; 83880; 84484; 85025; 87040; 87045; 87046; 87324; 87427; 87449; 93005; 96361; 96365; 96367; J0696; J1650; J2543; J3370; J3490